=== PATIENT | female | born 1965 | race Caucasian/White ===

== ENCOUNTER 2018-05-21 08:11 | Emergency (ER) | payer OTHER, SELFPAY ==
[2018-05-21] MEDS ORDERED: HYDROcodone/Acetaminophen 10/325 mg Tablet ONE (08:47)
--- NOTE | 2018-05-21 09:56 | RAD ---
RIGHT ELBOW FOUR VIEWS: History: 53-year-old female with history of right elbow injury after a fall. FINDINGS: There is a minimally displaced possibly very slightly comminuted fracture involving the radial head c entrally and laterally. Evidence for joint effusion. The ulna appears intact. IMPRESSION: Possibly slightly comminuted but essentially nondisplaced radial head fracture with joint effusion. POS: [facility]
--- NOTE | 2018-05-21 09:57 | RAD ---
RIGHT WRIST THREE VIEWS: History: 53-year-old female with history of right wrist and arm injury following a fall. FINDINGS: No evidence for acute fracture or dislocation. Mild degenerative changes. IMPRESSION: Mild degenerative changes without acute fracture or dislocation. If patient has persistent or worseni ng unexplained pain which does not resolve, consider a short term follow up study in one week versus additional imaging. POS: [facility]
--- NOTE | 2018-05-21 09:59 | RAD ---
RIGHT FOREARM TWO VIEWS: History: 53-year-old female with history of right arm injury following a fall. FINDINGS: Slightly comminuted radial head fracture. The forearm appears intact. IMPRESSION: Slightly comminuted essentially nondisplaced radial head fracture. The remainder of the forearm is in tact. POS: [facility]
== END 2018-05-21 09:56 | disposition home or self-care (01) ==
LOC: ERS 08:11
DX: S52.124A Nondisplaced fracture of head of right radius, initial encounter for closed fracture (principal); S43.401A Unspecified sprain of right shoulder joint, initial encounter; E11.9 Type 2 diabetes mellitus without complications; E78.5 Hyperlipidemia, unspecified; W01.0XXA Fall on same level from slipping, tripping and stumbling without subsequent striking against object, initial encounter
CPT/HCPCS: 24650